=== PATIENT | female | born 1975 | race Two or more races ===

== ENCOUNTER 2017-05-01 15:33 | Emergency (ER) | payer MEDICAID | END 2017-05-01 17:52 | disposition home or self-care (01) | LOC: E/R 15:33 | DX: R05 Cough (principal); Z87.891 Personal history of nicotine dependence | CPT/HCPCS: 99283; Z7502 ==

== ENCOUNTER 2018-05-12 19:32 | Emergency (ER) | payer MEDICAID ==
[2018-05-12] MEDS: ACETAMINOPHEN 325 MG TAB PO (22:09)
[2018-05-12] MEDS: IBUPROFEN 600 MG TAB PO (22:09)
== END 2018-05-12 22:28 | disposition home or self-care (01) ==
LOC: FTE 19:32
DX: J20.9 Acute bronchitis, unspecified (principal); F17.210 Nicotine dependence, cigarettes, uncomplicated
CPT/HCPCS: 99283; Z7502